=== PATIENT | female | born 1985 | race Caucasian/White ===

== ENCOUNTER 2018-08-27 10:05 | Emergency (ER) | payer SELFPAY | END 2018-08-27 10:55 | disposition home or self-care (01) | LOC: BURERS 10:05 | DX: K62.5 Hemorrhage of anus and rectum (principal); K64.8 Other hemorrhoids | CPT/HCPCS: 82274; 99283 ==

== ENCOUNTER 2021-12-08 13:07 | Emergency (ER) | payer SELFPAY ==
[2021-12-08] MEDS ORDERED: Dexamethasone 10 MG/ML VIAL ONE (14:01)
[2021-12-08 14:09] LABS: Bilirubin Negative (Negative); Blood, Urine Negative (Negative); Clarity Clear (Clear); Glucose, Urine (Dipstick) Negative (Negative); Ketone, Urine Negative (Negative); Leukocyte Trace (Negative); Nitrite Negative (Negative); Protein, Urine (Dipstick) Trace mg/dL (Neg-Trace); Specific Gravity, Urine 1.025 (1.005-1.030); Urobilinogen 0.2 mg/dL (Less than 2); pH, Urine 5.5 (5.0-9.0)
[2021-12-08 14:17] LABS: Bacteria/HPF None Seen HPF (None Seen); RBC/HPF 0-3 HPF (0-3); Squamous Epithelial 0-3 HPF (0-3)
[2021-12-08 14:18] LABS: Pregnancy Test - Urine (BHCG) Negative (Negative); Pregu Control Background? CLEAR/WHITE (CLR/WHITE); Pregu Control Bar Appear? YES (CONTROL BAR); Specific Gravity 1.025 (1.002-1.036)
== END 2021-12-08 15:58 | disposition home or self-care (01) ==
LOC: BURERS 13:07
DX: M54.50 Low back pain, unspecified (principal); Z87.891 Personal history of nicotine dependence
CPT/HCPCS: 81003; 81015; 81025; 96372; 99283; J1100